=== PATIENT | female | born 1975 | race Caucasian/White ===

== ENCOUNTER 2020-09-18 20:10 | Observation (INO) | payer BC, OTHER ==
[~2020-09-18 20:10] MED LIST: PRILOSEC OTC20 MG PO; VENLAFAXINE HCL50 MG PO
[2020-09-18] MEDS ORDERED: ATORVASTATIN CA10 MG PO (20:38)
[2020-09-18] MEDS ORDERED: LEVOTHYROXIN0.025 MG PO (20:38)
[2020-09-18] MEDS ORDERED: OMEPRAZOLE40 MG PO (20:39)
[2020-09-18] MEDS ORDERED: VENLAFAXINE HY150 MG PO (20:40)
[2020-09-18] MEDS ORDERED: NOVOLOG FLEX100 U/ML (20:41)
[2020-09-18 20:47] LABS: EOS # 0.1 (0.04-0.40); EOS % 1.3 % (1.0-5.0); HEMATOCRIT 43.8 % (37.0-47.0); HEMOGLOBIN 14.6 g/dL (12.5-16.0); LYMPH# 2.8 (1.50-4.00); MEAN CELL VOLUME 93 fl (78-100); MEAN CORPUSCULAR HEMOGLOBIN 31 pg (27-31); MEAN CORPUSCULAR HGB CONC 33 g/dL (33-37); MONO # 0.7 (0.20-0.80); PLATELET COUNT 301 K/mm3 (130-400); RED BLOOD COUNT 4.72 M/mm3 (4.10-5.30); WHITE BLOOD COUNT 10.7 K/mm3 (4.8-10.8)
[2020-09-18 20:56] LABS: ALBUMIN 4.5 g/dL (3.5-5.0); POTASSIUM 3.2 mmol/L (3.5-5.1)
[2020-09-18 20:58] LABS: CALCIUM 9.6 mg/dL (8.3-10.5)
[2020-09-18] MEDS ORDERED: TRESIBA FL100 UNIT/1 SQ (20:58)
[2020-09-18 20:59] LABS: TOTAL PROTEIN 7.3 g/dL (6.4-8.3)
[2020-09-18 21:01] LABS: TOTAL BILIRUBIN 0.3 mg/dL (0.2-1.2)
[2020-09-18 21:05] LABS: MAGNESIUM 2.06 mg/dL (1.60-2.60)
[2020-09-18 22:46] LABS: URINE APPEARANCE CLEAR; URINE BILIRUBIN NEGATIVE (NEGATIVE); URINE BLOOD TRACE (NEGATIVE); URINE COLOR YELLOW; URINE GLUCOSE NEGATIVE (NEGATIVE); URINE KETONE NEGATIVE (NEGATIVE); URINE LEUKOCYTE ESTERASE 1+ (NEGATIVE); URINE NITRATE NEGATIVE (NEGATIVE); URINE PROTEIN(semi-quant) TRACE mg/dL (NEGATIVE); URINE UROBILINOGEN NORMAL (NORMAL)
[2020-09-18 23:15] VITALS: BP 116/75
[2020-09-19] VITALS: BP 102/69
[2020-09-19 02:21] VITALS: BP 106/68
[2020-09-19 06:15] VITALS: BP 100/63
[2020-09-19 09:45] VITALS: BP 93/57
[2020-09-19 09:59] VITALS: BP 93/57
[2020-09-19 10:35] LABS: POTASSIUM 4.1 mmol/L (3.5-5.1)
[2020-09-19 10:36] LABS: CALCIUM 7.5 mg/dL (8.3-10.5)
[2020-09-19] MEDS ORDERED: ZOFRAN ODT4 MG PO (13:47)
[2020-09-19] MEDS ORDERED: CEFDINIR300 MG PO (13:47)
[2020-09-19 13:57] VITALS: BP 90/55
== END 2020-09-19 15:35 | disposition home or self-care (01) ==
LOC: ED 20:10 → MED/SURG 23:36
PROVIDERS: ADMIT Physician Assistant
DX: R55 Syncope and collapse (principal); I95.9 Hypotension, unspecified; N39.0 Urinary tract infection, site not specified; E10.9 Type 1 diabetes mellitus without complications; E03.9 Hypothyroidism, unspecified
CPT/HCPCS: G0378; J0696; J1650; J1885; J2405; J3480; J7030

== ENCOUNTER → 2024-10-13 | Outpatient (CLI) | payer BC ==
[~2024-10-13] MED LIST changes: +ATORVASTATIN CA10 MG PO; +CEFDINIR300 MG PO; +LEVOTHYROXIN0.025 MG PO; +NOVOLOG FLEX100 U/ML; +OMEPRAZOLE40 MG PO; +TRESIBA FL100 UNIT/1 SQ; +VENLAFAXINE HY150 MG PO; +ZOFRAN ODT4 MG PO
== END ==
LOC: RAD 15:09
DX: Z01.818 Encounter for other preprocedural examination (principal)